=== PATIENT | male | born 1990 | race Caucasian/White ===

== ENCOUNTER 2018-12-30 19:06 | Emergency (ER) | payer BC, OTHER ==
[~2018-12-30] VITALS: Ht 193 cm; Wt 80.1 kg
[2018-12-30 19:08] VITALS: BP 122/76
[2018-12-30] MEDS ORDERED: IBUPROFEN 200 MG TABLET ONE (19:26)
[2018-12-30] MEDS ORDERED: IBUPROFEN 800 MG TABLET PO ONE (19:30)
== END 2018-12-30 20:43 | disposition home or self-care (01) ==
LOC: ED 20:09
DX: S52.501A Unspecified fracture of the lower end of right radius, initial encounter for closed fracture (principal); V86.56XA Driver of dirt bike or motor/cross bike injured in nontraffic accident, initial encounter; Y93.55 Activity, bike riding; Y92.828 Other wilderness area as the place of occurrence of the external cause; Y99.8 Other external cause status
CPT/HCPCS: 29125; 99283

== ENCOUNTER 2020-03-09 10:55 | Emergency (ER) | payer OTHER ==
[~2020-03-09] VITALS: Ht 193 cm; Wt 82.3 kg
[2020-03-09 11:08] VITALS: BP 109/56
[2020-03-09] MEDS ORDERED: LIDOCAINE-MPF 1%, 5ML ONE (11:44)
[2020-03-09] MEDS ORDERED: DIPH,PERTUSS(ACELL),TET VAC/PF 0.5 ML IM-VACC ONE ×2 (11:45→12:00)
[2020-03-09] MEDS ORDERED: LIDOCAINE-MPF 1%, 5ML INFIL ONE (12:00)
--- NOTE | 2020-03-09 12:44 | NUR ---
Patient given wound care, discharge instructions and Rx, they have confirmed that they understand the instructions. Patient ambulatory with steady gait.
[2020-03-09] MEDS ORDERED: NEOSPORIN OINT. PKT 1 PACKET ONE (12:55)
== END 2020-03-09 13:11 | disposition home or self-care (01) ==
LOC: ED 12:32
DX: S71.112A Laceration without foreign body, left thigh, initial encounter (principal); W45.8XXA Other foreign body or object entering through skin, initial encounter; Y93.89 Activity, other specified; Y92.009 Unspecified place in unspecified non-institutional (private) residence as the place of occurrence of the external cause; Y99.8 Other external cause status
CPT/HCPCS: 12031; 90471; 90715; 99284